=== PATIENT | male | born 1980 | race Caucasian/White ===

== ENCOUNTER 2020-03-05 09:22 | Outpatient (CLI) | payer OTHER, SELFPAY ==
--- NOTE | ~2020-03-05 | US_ITS ---
US thyroid INDICATION: Left thyroid nodule TECHNIQUE: Real-time sonographic images of the thyroid gland were obtained. COMPARISON: No prior studies for comparison. FINDINGS: The right thyroid lobe measures 4.7 x 1.3 x 1.2 cm. The left thyroid lobe measures 3.9 x 2 .1 x 2.3 cm. There is normal echotexture and echogenicity throughout the thyroid gland. There is a so lid mass of the left lobe measuring 2.4 x 1.5 x 1.7 cm which is slightly hyperechoic, smooth margin, wider than tall and no internal calcifications, TR 3. Normal vascular flow is present. IMPRESSION: 1. 2.4 cm left thyroid mass, TR 3, ultrasound-guided fine-needle aspiration biopsy recommended. Reviewed, dictated and finalized at location B. IMPRESSION: 1. 2.4 cm left thyroid mass, TR 3, ultrasound-guided fine-needle aspiration bi opsy recommended.
== END 2020-03-05 09:23 | disposition home or self-care (01) ==
PROVIDERS: PCP Family Medicine; Visit Provider Family Medicine
DX: E07.9 Disorder of thyroid, unspecified (principal)
CPT/HCPCS: 76536

== ENCOUNTER 2020-03-16 09:15 | Outpatient (CLI) | payer OTHER, SELFPAY ==
--- NOTE | ~2020-03-16 | US_ITS ---
EXAMINATION: US FNA w image guidance DATE: 03/16/2020 10:11 INDICATION: Left thyroid nodule. TECHNIQUE: The procedure and its benefits, risks, and benefits were discussed with the patient. Risks specifical ly discussed included bleeding. The patient verbalized understanding of the risks and agreed to proce ed. The neck was prepped and draped in the usual sterile manner. 1% lidocaine was used for local ane sthesia. 5 passes were made with a 25G needle into the lesion. Appropriate needle location was docu mented with continuous sonographic guidance. There were no immediate complications. The patient unde rstood to call the ordering physician for results after a week and a half and verbalized that underst anding. FINDINGS: Grayscale ultrasound images demonstrate needles advanced into a 3.2 cm mixed solid and cystic nodule in left thyroid lobe for biopsy. IMPRESSION: 1. Ultrasound-guided fine needle aspiration of a left thyroid nodule. Reviewed, dictated and finalized at location A.
== END 2020-03-16 09:16 | disposition home or self-care (01) ==
PROVIDERS: PCP Family Medicine; Visit Provider Family Medicine
DX: E04.9 Nontoxic goiter, unspecified (principal)
CPT/HCPCS: 10005; 88173; 88305; 88307

== ENCOUNTER 2023-10-08 17:01 | Emergency (ER) | payer OTHER, SELFPAY ==
[2023-10-08 17:17] VITALS: BP 126/95; PULSE 101; RESP 18; TEMP 36.9; O2SAT 99
--- NOTE | 2023-10-08 17:39 | ED.GENADULT ---
HPI - General Adult General Chief complaint: Abdominal Pain Stated complaint: lt side pain Time Seen by Provider: 10/08/23 17:30 Source: patient and RN notes reviewed Mode of arrival: ambulatory Limitations: no limitations History of Present Illness HPI narrative: Patient presents today complaining of body aches, left-sided abdominal pain and, ?feeling unwell? with decreased appetite since last night. Symptoms have worsened today. Denies fever, nausea, vomiting, diarrhea. He has been taking some Aleve that has provided some relief. Reports his abdominal pain is only present with touching the area. History of diverticulosis, IBS, GERD Related Data Home Medications Medication Instructions Recorded Confirmed cholecalciferol (vitamin D3) 50 50 mcg PO DAILY 08/25/22 09/06/22 mcg (2,000 unit) capsule vitamin B12 2,500 mcg-folic acid tablet PO 08/25/22 09/06/22 400 mcg disintegrating tablet psyllium seed (sugar) oral powder 1 tsp PO DAILY 09/06/22 09/06/22 (Metamucil (sugar) oral powder) Allergies Allergy/AdvReac Type Severity Reaction Status Date / Time erythromycin base Allergy Unknown Rash Verified 03/06/23 13:05 Review of Systems Review of Systems: CONSTITUTIONAL: Denies fever, chills, or sweats.+ body aches, malaise EYES: Denies visual changes, redness, or discharge. ENT: Denies rhinorrhea, congestion, sore throat, or otalgia. CARDIOVASCULAR: Denies chest pain, palpitations, or edema. RESPIRATORY: Denies cough or dyspnea. GASTROINTESTINAL: Denies nausea, vomiting, or diarrhea.+ abdominal pain GENITOURINARY: Denies dysuria or hematuria. SKIN: Denies rash, itching, or wounds. MUSCULOSKELETAL: Denies back pain, joint pain, or myalgia. NEUROLOGIC: Denies headache, numbness, tingling, or weakness. PSYCH: Denies depression or anxiety. FOR[facility]LY [facility] Past Medical History Medical History (Updated 10/08/23 @ 17:47 by Deborah Resendez, ANAHY, LOLI) Anxiety Asthma Chest pain in adult Diverticulosis Essential hypertension Hepatic steatosis Hypertension Irritable bowel syndrome Overweight Right flank pain Thyroid nodule Family History Family History Father Diabetes mellitus Hypertension Mother Diabetes mellitus Hypertension Sibling Hypertension Social History Social History Smoking status: Former smoker Smoking end date: 08/21/12 Alcohol intake: current Substance use: never Lack of Transportation: No Lack of Food: Never True Current Housing: I Have Housing Concerned About Future Housing: No Difficulty Paying Gas/Electric Bills: No Difficulty Paying for Meds: No Currently Unemployed: No Education: Bachelor's Degree Difficulty w/ Childcare or Family Care: No Living arrangements: with family Occupation/Education: occupation Gender identity (if verbalized by the patient): Male Sexual Orientation (if Verbalized by the Patient): Straight or Heterosexual Spiritual care concerns: No Comments At time of signature, I have reviewed and agree with nursing past medical, surgical, social and family history unless otherwise noted. Please see nursing chart for further information. There is no relevant family history pertinent to the presenting complaint Exam Narrative: GENERAL: Well-appearing, well-nourished, and in no acute distress. HEAD: Normocephalic, atraumatic. EYES: EOMI. No redness or drainage. Conjunctivae normal. ENT: Mucous membranes pink and moist. NECK: Normal AROM. CHEST: No respiratory distress. Clear to auscultation. HEART: Regular rate and rhythm. No murmur appreciated. Normal peripheral pulses. ABDOMEN: Soft, nondistended, normal active bowel sounds. Left lower quadrant abdominal tenderness without rebound or guarding. EXTREMITIES: Normal range of motion. No edema. SKIN: Warm, dry, no rash. Capillary refill normal. Normal
== END 2023-10-08 17:43 | disposition home or self-care (01) ==
PROVIDERS: Emergency Provider Nurse Practitioner; PCP Family Medicine
DX: R10.814 Left lower quadrant abdominal tenderness (principal); I10 Essential (primary) hypertension; Z87.891 Personal history of nicotine dependence
CPT/HCPCS: 99211; G0463

== ENCOUNTER 2023-10-09 01:58 | Emergency (ER) | payer OTHER, SELFPAY ==
--- NOTE | ~2023-10-09 | CT_ITS ---
CT of the Abdomen and Pelvis: Indication: Abdominal pain Technique: 2.5 mm axial scans were obtained through the abdomen and pelvis following intravenous adm inistration of 100 cc of Omnipaque 350. Dose reduction technique was used on this scan by utilizing a utomated exposure control and iterative reconstruction technique. The dose-length product (DLP) was 5 42.63 mGy-cm. Findings: Scans through the lung bases are unremarkable. The liver, spleen, pancreas, gallbladder, adrenals and kidneys are within normal limits. No evidence of aortic aneurysm. No lymphadenopathy. There is wall thickening and inflammatory change at the proximal sigmoid colon with underlying divert icular disease, compatible with acute diverticulitis. No abscess or free air. No bowel obstruction. Images through the pelvis were performed. Urinary bladder unremarkable. Prostate gland and seminal ve sicles are unremarkable. Impression: Acute sigmoid diverticulitis. No abscess or free air. Reviewed, dictated and finalized at [facility]. [employer] Impression: Acute sigmoid diverticulitis. No abscess or free air.
[2023-10-09 01:59] VITALS: BP 137/84; PULSE 109; RESP 16; TEMP 37.2; O2SAT 97
[2023-10-09 04:02] LABS: Basophils Percent Auto 0.2 % (0.2-1.2); Eosinophils Percent Auto 0.1 % (0-4.4); Hemoglobin 14.7 g/dL (14.0-18.0); Immature Granulocyte Absolute 0.07 K/mm3 (0.00-0.031); Immature Granulocyte Percent A 0.5 % (0-0.5); Lymphocytes Absolute Auto 1.28 K/mm3 (0.9-3.2); Lymphocytes Percent Auto 9.3 % (18.3-44.2); Mean Corpuscular HGB Conc 34.2 g/dl (32-36); Mean Corpuscular Hemoglobin 30.3 pg (26-34); Mean Corpuscular Volume 88.7 fl (80-100); Mean Platelet Volume 11.6 fl (7.4-10.4); Monocytes Absolute Auto 1.1 K/mm3 (0.1-0.6); Monocytes Percent Auto 7.9 % (2.6-8.5); Neutrophils Absolute Auto 11.2 K/mm3 (1.3-6.7); Platelet Count Result 177 k/mm3 (150-375); Red Blood Count 4.85 M/mm3 (4.6-6.20); Red Cell Distribution Width 12.2 % (11.5-14.5); White Blood Count 13.7 K/mm3 (4.5-10.0)
[2023-10-09 04:05] LABS: Alanine Aminotransferase 24 U/L (6-50); Albumin Level 4.4 g/dL (3.5-5.1); Alkaline Phosphatase 59 U/L (38-126); Anion Gap 3 mmol/L (8-16); Aspartate Amino Transferase 21 U/L (17-59); Bilirubin,Total 1.5 mg/dL (0.2-1.3); Blood Urea Nitrogen 9 mg/dL (9-20); Calcium 9.5 mg/dL (8.4-10.2); Carbon Dioxide 30 mmol/L (22-30); Chloride 101 mmol/L (98-107); Estimated CRCL calculation 127 ml/min; Estimated Glomerular Filt Rate > 60; Glucose 115 mg/dL (65-110); Lipase 38 U/L (23-300); Potassium 3.7 mmol/L (3.4-5.0); Sodium 134 mmol/L (137-145)
--- NOTE | 2023-10-09 04:24 | ED.ABDPAIN ---
HPI - Abdominal Pain General Chief Complaint: Abdominal Pain Stated Complaint: abd pain, fever Time Seen by Provider: 10/09/23 03:54 History of Present Illness HPI narrative: 43-year-old male presents to the emergency department for evaluation of left lower quadrant pain. Patient states symptoms started Monday. Patient denies any associated nausea vomiting constipation or diarrhea. Patient does have prior history of diverticulosis without diverticulitis. Related Data Home Medications Medication Instructions Recorded Confirmed cholecalciferol (vitamin D3) 50 50 mcg PO DAILY 08/25/22 10/09/23 mcg (2,000 unit) capsule vitamin B12 2,500 mcg-folic acid tablet PO 08/25/22 10/09/23 400 mcg disintegrating tablet psyllium seed (sugar) oral powder 1 tsp PO DAILY 09/06/22 10/09/23 (Metamucil (sugar) oral powder) Allergies Allergy/AdvReac Type Severity Reaction Status Date / Time erythromycin base Allergy Unknown Rash Verified 10/09/23 15:13 Review of Systems Review of Systems: All systems reviewed & are unremarkable except as noted in HPI and below PMFSH Past Medical History Medical History Anxiety Asthma Chest pain in adult Diverticulosis Essential hypertension Hepatic steatosis Hypertension Irritable bowel syndrome Overweight Right flank pain Thyroid nodule Family History Family History Father Diabetes mellitus Hypertension Mother Diabetes mellitus Hypertension Sibling Hypertension Social History Social History Smoking status: Former smoker Smoking end date: 08/21/12 Alcohol intake: current Substance use: never Lack of Transportation: No Lack of Food: Never True Current Housing: I Have Housing Concerned About Future Housing: No Difficulty Paying Gas/Electric Bills: No Difficulty Paying for Meds: No Currently Unemployed: No Education: Bachelor's Degree Difficulty w/ Childcare or Family Care: No Living arrangements: with family Occupation/Education: occupation Gender identity (if verbalized by the patient): Male Sexual Orientation (if Verbalized by the Patient): Straight or Heterosexual Spiritual care concerns: No Exam Narrative: APPEARANCE: Well appearing, no pain, no distress, well-nourished. HEAD: normocephalic, atraumatic. EYES: PERRLA/EOMI, conjunctivae clear. NOSE: Normal no drainage NECK: Supple. No adenopathy, no masses. RESPIRATORY: Airway patent, respirations nonlabored. Clear to auscultation bilaterally, no rales, rhonchi, wheezing. CARDIOVASCULAR: Regular rate and rhythm without murmurs rubs or gallops. ABDOMINAL: Left lower quadrant tenderness to palpation MUSCULOSKELETAL: Moves all extremities. Strength/ROM intact, No edema, No calf tenderness. NEURO: Alert. Cranial nerves II through XII intact. SKIN: Warm, dry. Normal Color Course Course Emergency Course: 43-year-old male presents emergency department for evaluation of left lower quadrant abdominal pain. Patient does have history of diverticulosis. CT scan did show evidence diverticulitis. Patient was started on Augmentin. Patient was updated on the results of the workup and treatment plan. Patient was encouraged to have close follow-up with GI. Vital Signs Vital signs: Vital Signs Temperature 98.9 F 10/09/23 01:59 Pulse Rate 109 H 10/09/23 01:59 Respiratory Rate 16 10/09/23 01:59 Blood Pressure 137/84 10/09/23 01:59 Pulse Oximetry 97 10/09/23 01:59 Oxygen Delivery Room Air 10/09/23 01:59 Temperature 98.9 F 10/09/23 01:59 Pulse Rate 92 10/09/23 05:49 Respiratory Rate 15 10/09/23 05:49 Blood Pressure 128/83 10/09/23 05:49 Pulse Oximetry 100 10/09/23 05:49 Oxygen Delivery Room Air 10/09/23 01:59 MDM - Abdominal Pain Differential Diagnosis Differential diagno
[2023-10-09] MEDS: SODIUM CHLORIDE 0.9% IV 1,000 ML 999 ML IV CONT (04:33)
[2023-10-09] MEDS: AMOXICILLIN/CLAVULANATE K 875-125 MG TAB 1 TABLET PO (05:43)
[2023-10-09 05:49] VITALS: BP 128/83; PULSE 92; RESP 15; O2SAT 100
== END 2023-10-09 05:52 | disposition home or self-care (01) ==
PROVIDERS: Emergency Provider Emergency Medicine; PCP Family Medicine
DX: K57.32 Diverticulitis of large intestine without perforation or abscess without bleeding (principal); J45.909 Unspecified asthma, uncomplicated; I10 Essential (primary) hypertension; K58.9 Irritable bowel syndrome, unspecified; E66.3 Overweight; Z68.30 Body mass index [BMI] 30.0-30.9, adult; Z87.891 Personal history of nicotine dependence
CPT/HCPCS: 36415; 74177; 80053; 83690; 85025; 96360; 99284; A9270; J7030; Q9967

== ENCOUNTER 2024-05-15 22:07 | Emergency (ER) | payer OTHER, SELFPAY ==
[2024-05-15] VITALS (9 sets, daily range): BP systolic 140–157; BP diastolic 90–110; PULSE 83–109; RESP 16–28; TEMP 36.9; O2SAT 96–99
--- NOTE | ~2024-05-15 | XR_ITS ---
EXAMINATION: XR chest 2V Exam Date/Time: 05/15/2024 22:15 CDT HISTORY: anterior wall injury Comparison: 03/26/2019. RESULT: Lines, tubes, and devices: None. Lungs and pleura: Clear. Cardiomediastinal silhouette: Stable. Other: No acute osseous or upper abdominal finding. IMPRESSION: No acute cardiopulmonary process. Reviewed, dictated and finalized at location K.
--- NOTE | 2024-05-15 22:15 | ECG_ITS ---
Test Date: 2024-05-15 22:28:31 Measurements Intervals [place] Rate: 88 P: 21 AR: 148 QRS: -9 QRSD: 90 T: -4 QT: 322 QTc: 391 Interpretive Statements SINUS RHYTHM VOLTAGE CRITERIA FOR LVH BORDERLINE ST-T WAVE ABNORMALITY- INFERIOR LEADS BORDERLINE ECG No previous ECG available for comparison Electronically Signed On 05-16-2024 05:41:50 CDT by Leeroy Butterfield D.O.
--- NOTE | 2024-05-16 02:11 | ED.UPPEXIN ---
HPI - Extremity Injury (Upper) General Chief Complaint: Extremity Injury, Upper Stated Complaint: upper extremity pain after hockey collision Time Seen by Provider: 05/15/24 22:15 History of Present Illness HPI narrative: Patient collided with another player while playing hockey, and then fell to the ground, he was thankfully wearing gear, but did have some discomfort to his chest, right-sided back. no head injury or loss of consciousness, no difficulty breathing. Related Data Home Medications Medication Instructions Recorded Confirmed psyllium seed (sugar) oral powder 1 tsp PO DAILY 09/06/22 04/09/24 (Metamucil (sugar) oral powder) Allergies Allergy/AdvReac Type Severity Reaction Status Date / Time erythromycin base Allergy Unknown Rash Verified 05/15/24 22:18 Review of Systems Review of Systems: All systems reviewed & are unremarkable except as noted in HPI and below PMFSH Past Medical History Medical History Anxiety Asthma Chest pain in adult Diverticulosis Essential hypertension Hepatic steatosis Hypertension Irritable bowel syndrome Overweight Right flank pain Thyroid nodule Family History Family History Father Diabetes mellitus Hypertension Mother Diabetes mellitus Hypertension Sibling Hypertension Social History Social History Smoking status: Former smoker Smoking end date: 08/21/12 Alcohol intake: current Substance use: never Lack of Transportation: No Lack of Food: Never True Current Housing: I Have Housing Concerned About Future Housing: No Difficulty Paying Gas/Electric Bills: No Difficulty Paying for Meds: No Currently Unemployed: No Education: Bachelor's Degree Difficulty w/ Childcare or Family Care: No Living arrangements: with family Occupation/Education: occupation Gender identity (if verbalized by the patient): Male Sexual Orientation (if Verbalized by the Patient): Straight or Heterosexual Spiritual care concerns: No Exam Narrative: EXAMINATION OF ORGAN SYSTEMS/BODY AREAS: Constitutional: Vital signs per nursing GENERAL:[No acute distress, non-toxic appearing.] HEAD: Normal with no signs of head trauma. EYES: EOMI, conjunctiva normal ENT: Hearing grossly intact NECK: No midline tenderness LUNGS: Nonlabored breathing. HEART: [Regular rate and rhythm] . Soft, no significant tenderness to palpation of anterior chest, no signs of bruising or trauma. Normal radial pulses. ABD: [Soft], [nontender to palpation] , no bruising EXT: Normal range of motion at shoulders, elbows, wrists, no significant tenderness to palpation SKIN: [No rashes or lesions.] NEURO: [Alert and oriented x 3. No gross focal sensory or strength deficits.] PSYCH: Normal affect Course Vital Signs Vital signs: Vital Signs Temperature 98.4 F 05/15/24 22:09 Pulse Rate 106 H 05/15/24 22:09 Respiratory Rate 18 05/15/24 22:09 Blood Pressure 146/90 H 05/15/24 22:09 Pulse Oximetry 99 05/15/24 22:09 Oxygen Delivery Room Air 05/15/24 22:09 Temperature 98.4 F 05/15/24 22:09 Pulse Rate 88 05/15/24 23:16 Respiratory Rate 28 H 05/15/24 23:16 Blood Pressure 140/102 H 05/15/24 23:15 Pulse Oximetry 97 05/15/24 23:16 Oxygen Delivery Room Air 05/15/24 22:09 MDM - Extremity Injury (Upper) MDM Narrative Medical decision making narrative: patient presents here after hockey injury after colliding 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 no significant tenderness to palpation to chest, abdomen, either extremity, slight tenderness to palpation to the right mid back but no midline tenderness. No neurovascular deficits. Chest x-ray on my independent interpretation without obvious fractures or signs of pulmonary contusion. EKG On my independent interpretatio
== END 2024-05-15 23:19 | disposition home or self-care (01) ==
PROVIDERS: Emergency Provider Emergency Medicine; PCP Family Medicine
DX: S29.9XXA Unspecified injury of thorax, initial encounter (principal); J45.909 Unspecified asthma, uncomplicated; I10 Essential (primary) hypertension; E66.3 Overweight; Z68.28 Body mass index [BMI] 28.0-28.9, adult; K58.9 Irritable bowel syndrome, unspecified; Z87.891 Personal history of nicotine dependence; R94.31 Abnormal electrocardiogram [ECG] [EKG]; W03.XXXA Other fall on same level due to collision with another person, initial encounter; Y93.22 Activity, ice hockey
CPT/HCPCS: 71046; 93005; 99283

== ENCOUNTER 2024-10-08 10:52 | Outpatient (CLI) | payer OTHER, SELFPAY ==
--- NOTE | ~2024-10-08 | US_ITS ---
Limited Abdominal Sonogram: Real-time sonographic imaging of the right upper quadrant was performed. Clinical History: Fatty liver Findings: The liver appears mildly echogenic with no evidence of mass lesion or bile duct dilatation . Main portal vein demonstrates normal direction of flow. The gallbladder is well distended, and demo nstrate 6 mm probable gallbladder wall polyp. The common bile duct measures 4 mm. The visualized quick creas, aorta, and IVC are unremarkable. Impression: Probable 6 mm gallbladder wall polyp. Suspected fatty infiltration of liver. Reviewed, dictated and finalized at location M. N PERSON Impression: Probable 6 mm gallbladder wall polyp. Suspected fatty infiltration of liver.
== END 2024-10-08 10:53 | disposition home or self-care (01) ==
PROVIDERS: PCP Family Medicine; Visit Provider Family Medicine
DX: K76.0 Fatty (change of) liver, not elsewhere classified (principal); K82.4 Cholesterolosis of gallbladder
CPT/HCPCS: 76705

== ENCOUNTER 2024-11-26 11:54 | Outpatient (CLI) | payer OTHER, SELFPAY ==
--- NOTE | ~2024-11-26 | XR_ITS ---
Lumbosacral Spine: AP, oblique, and lateral views Clinical History: Pain Findings: The normal lordotic curve is maintained. The vertebral bodies and posterior elements are i ntact. There are mild degenerative disc changes in the lumbar spine. There is mild facet arthropathy. The sacroiliac joints are normally outlined. Impression: Mild degenerative spondylosis. Reviewed, dictated and finalized at location . Impression: Mild degenerative spondylosis.
== END 2024-11-26 11:55 | disposition home or self-care (01) ==
LOC: MICIMG 11:55
PROVIDERS: PCP Family Medicine; Visit Provider Family Medicine
DX: S39.012A Strain of muscle, fascia and tendon of lower back, initial encounter (principal); X58.XXXA Exposure to other specified factors, initial encounter; M47.896 Other spondylosis, lumbar region
CPT/HCPCS: 72110